=== PATIENT | female | born 1940 | race Caucasian/White ===

== ENCOUNTER 2017-12-24 18:22 | Emergency (ER) | payer MEDICARE, OTHER ==
[~2017-12-24] VITALS: Ht 142.2 cm; Wt 74.1 kg
[2017-12-24 18:24] VITALS: TEMP 99.3
[2017-12-24] MEDS ORDERED: LOPRESSOR 225 MG/TAB PO (18:36)
[2017-12-24] MEDS ORDERED: LIPITOR 40MG TA40 MG PO (18:36)
[2017-12-24] MEDS ORDERED: HCTZ 25MG TAB25 MG PO (18:37)
[2017-12-24] MEDS ORDERED: LEVOXYL0.075 MG PO (18:37)
[2017-12-24 21:09] VITALS: BP 143/79; PULSE 76
== END 2017-12-24 21:09 | disposition home or self-care (01) ==
LOC: COL.ER 18:22
DX: S82.831A Other fracture of upper and lower end of right fibula, initial encounter for closed fracture (principal); E78.5 Hyperlipidemia, unspecified; E03.9 Hypothyroidism, unspecified; I10 Essential (primary) hypertension; W11.XXXA Fall on and from ladder, initial encounter; X50.0XXA Overexertion from strenuous movement or load, initial encounter; Y92.009 Unspecified place in unspecified non-institutional (private) residence as the place of occurrence of the external cause
CPT/HCPCS: Q4045

== ENCOUNTER 2018-01-17 13:42 | Emergency (ER) | payer MEDICARE, OTHER ==
[~2018-01-17] VITALS: Ht 142.2 cm; Wt 72.7 kg
[~2018-01-17 13:42] MED LIST: HCTZ 25MG TAB25 MG PO; LEVOXYL0.075 MG PO; LIPITOR 40MG TA40 MG PO; LOPRESSOR 225 MG/TAB PO
[2018-01-17 13:53] VITALS: TEMP 98.6
[2018-01-17 15:39] LABS: BASO # 0.1 (0.0-0.2); BASO % 0.9 % (0.0-2.0); EOS # 0.1 (0.0-0.7); EOS % 1.1 % (0-4.0); GRAN # 6.6 (1.4-6.5); GRAN % 67.2 % (42.2-75.2); HEMATOCRIT 40.7 % (37.0-47.0); HEMOGLOBIN 14.4 g/dl (12.5-16.0); LYMPH % 20.1 % (20.0-51.0); MEAN CELL VOLUME 89 fl (80.0-100.0); MEAN CORPUSCULAR HEMOGLOBIN 31 pg (27.0-31.0); MEAN CORPUSCULAR HGB CONC 35 g/dl (33.0-37.0); MEAN PLATELET VOLUME 8.6 fl (7.4-10.4); MONO % 10.3 % (1.7-9.3); PLATELET COUNT 336 K/mm3 (130-400); RED BLOOD COUNT 4.59 M/mm3 (4.10-5.30); REDCELL DISTRIBUTION WIDTH-CV 12.3 % (11.5-14.5)
[2018-01-17 15:57] LABS: ALBUMIN 4.2 gm/dL (3.5-5.0); BILIRUBIN,TOTAL 0.5 mg/dL (0.0-1.0); CALCIUM 9.5 mg/dL (8.4-10.2); CREATININE, serum 0.62 mg/dL (0.52-1.25); POTASSIUM 3.8 mmol/L (3.4-5.0); TOTAL PROTEIN 7.6 gm/dL (6.4-8.2)
[2018-01-17 16:25] LABS: THYROID STIMULATING HORMONE 3.14 uIU/mL (0.465-4.680)
[2018-01-17 17:09] VITALS: BP 138/54; PULSE 96
== END 2018-01-17 17:24 | disposition home or self-care (01) ==
LOC: COL.ER 13:42
PROVIDERS: Emergency Medicine
DX: I10 Essential (primary) hypertension (principal); E03.9 Hypothyroidism, unspecified; Z90.710 Acquired absence of both cervix and uterus; Z90.89 Acquired absence of other organs

== ENCOUNTER → 2018-03-19 | Outpatient (CLI) | payer MEDICARE, OTHER ==
[2018-03-19 18:29] LABS: ALBUMIN 4.1 gm/dL (3.5-5.0); BILIRUBIN,TOTAL 0.5 mg/dL (0.0-1.0); CALCIUM 9.3 mg/dL (8.4-10.2); CREATININE, serum 0.77 mg/dL (0.52-1.25); POTASSIUM 4.8 mmol/L (3.4-5.0)
[2018-03-19 18:59] LABS: THYROID STIMULATING HORMONE 4.56 uIU/mL (0.465-4.680)
== END ==
LOC: COL.LAB 17:45
PROVIDERS: Family Medicine
DX: E03.9 Hypothyroidism, unspecified (principal)

== ENCOUNTER 2018-03-20 15:00 | Outpatient (RCR) | payer MEDICARE, OTHER | END 2018-06-16 | disposition home or self-care (01) | LOC: WSPT | DX: S82.64XD Nondisplaced fracture of lateral malleolus of right fibula, subsequent encounter for closed fracture with routine healing (principal) | CPT/HCPCS: G8978-GP; G8979-GP; G8980-GP ==